=== PATIENT | male | born 1960 | race Caucasian/White ===

== ENCOUNTER → 2023-09-02 13:05 | Outpatient (BNVA) | payer OTHER, SELFPAY | PROVIDERS: PCP Family Medicine; Visit Provider Internal Medicine | DX: R07.9 Chest pain, unspecified (principal); I25.10 Atherosclerotic heart disease of native coronary artery without angina pectoris; R06.00 Dyspnea, unspecified; R94.31 Abnormal electrocardiogram [ECG] [EKG] | CPT/HCPCS: 93005; 99204 ==

== ENCOUNTER 2023-09-08 14:43 | Outpatient (CLI) | payer OTHER, SELFPAY ==
--- NOTE | 2023-09-08 15:15 | USCV_ITS ---
Demar Royal Age: 63 Gender: M : 1960 Exam Date: 09/08/2023 15:19 Ordering Phys: Brady Ledesma M.D ([email or web address]) Technologist: Teresa Silva Exam Location: [facility] Indication: CAD, SOLARES, BP: / HR: 68 Rhythm: Sinus Technical Quality: Adequate MEASUREMENTS (Male / Female) Normal Values 2D ECHO LV Diastolic Diameter PLAX 4.0 cm 4.2 - 5.9 / 3.9 - 5.3 cm LV Systolic Diameter PLAX 3.1 cm IVS Diastolic Thickness 1.2 cm 0.6 - 1.0 / 0.6 - 0.9 cm IVS Systolic Thickness 1.6 cm LVPW Diastolic Thickness 0.9 cm 0.6 - 1.0 / 0.6 - 0.9 cm LVPW Systolic Thickness 1.5 cm LVOT Diameter 2.2 cm LV Ejection Fraction 2D Teich 45.1 % LV Ejection Fraction MOD 2C 28.8 % LV Ejection Fraction 2C AL 29.5 % LA Diameter 2.7 cm LA Width 2.9 cm LA Height 3.5 cm RA Width 2.8 cm RA Height 3.9 cm Aorta at Sinotubular Diameter 3.3 cm IVC Diameter 1.2 cm M-MODE Aortic Annulus Diameter 3.1 cm LA Ao Ratio MM 0.9 MV E Point Septal Separation 1.1 cm DOPPLER AV Peak Velocity 117.0 cm/s LVOT Peak Velocity 61.0 cm/s AV Area Cont Eq vti 1.9 cm squared AV Area Cont Eq pk 2.0 cm squared MV Peak Velocity 105.0 cm/s MV Area PHT 3.3 cm squared Mitral E to A Ratio 0.5 MV E' Velocity 31.0 cm/s Mitral E to MV E' Ratio 9.1 Mitral E to LV E' Lateral Ratio 9.3 Mitral E to LV E' Septal Ratio 9.1 PV Peak Velocity 76.0 cm/s RV Acceleration Time 0.1 s RV Ejection Time 0.3 s RV AcT/ET 0.3 FINDINGS Left Ventricle Left ventricle is normal in size. LV systolic function is moderate to severely reduced with EF of 30 to 35%. Moderate to severe global hypokinesis seen. Grade 1 diastolic dysfunction Right Ventricle Mildly hypokinetic Right Atrium Normal in size Left Atrium Normal in size Mitral Valve Mild mitral regurgitation. Aortic Valve Grossly normal. No significant stenosis or regurgitation. Tricuspid Valve Insufficient TR jet to calculate RVSP Pulmonic Valve Not well visualized Pericardium Normal Aorta Normal in size IVC Not well visualized CONCLUSIONS LV systolic function is moderate to severely reduced with EF of 30-35% Grade 1 diastolic dysfunction Mildly hypokinetic right ventricle. Mild mitral regurgitation No comparison studies are available. Brady Ledesma MD (Electronically Signed) Final Date: 13 September 2023 12:20 S
== END 2023-09-08 14:44 | disposition home or self-care (01) ==
PROVIDERS: PCP Family Medicine; Visit Provider Internal Medicine
DX: R06.00 Dyspnea, unspecified (principal); R07.9 Chest pain, unspecified; I25.10 Atherosclerotic heart disease of native coronary artery without angina pectoris; I51.89 Other ill-defined heart diseases; I34.0 Nonrheumatic mitral (valve) insufficiency
CPT/HCPCS: 93306

== ENCOUNTER 2023-09-10 08:35 | Outpatient (CLI) | payer OTHER, SELFPAY ==
--- NOTE | 2023-09-10 | ECG_ITS ---
[facility] Test Date: 2023-09-10 Pat Name: Royal Benz Department: Room: Gender: Male Structural Rigger: Anatoly Damon : 1960 Requested By: Brady Ledesma Order Number: [id number] Patricia MD: Brady Ledesma M.D. Interpretive Statements NAME OF STUDY: EXERCISE SESTAMIBI STRESS TEST INDICATION: [Chest Pain; Shortness of Breath, ] EXERCISE DATA: The patient was exercised by Steven protocol. Baseline heart rate was 75 beats per minute. Baseline blood pressure was 147/92 millimeters of mercury. Target heart rate was 135 beats per minute. Maximum heart rate achieved was 151, which was 111% of the target heart rate. Maximum blood pressure was 216/81 millimeters of mercury. Total exercise time was 5 minutes and 50 seconds. Maximum METs achieved was 7. The reason for ending the test was completion of the protocol. The patient complained of shortness of breath during the stress test, which then resolved at the end of the test. ELECTROCARDIOGRAM: BASELINE: Showed sinus rhythm, normal axis, no significant ST-T changes at the baseline noted. [] EXERCISE: At the peak exercise level, [] No significant ST-T changes suggestive of ischemia noted. [] RECOVERY: During the recovery period, heart rate dropped appropriately. No significant ST-T changes in the recovery suggestive of ischemia noted. [] PVCs seen CONCLUSION: 1. Exercise capacity is fair. 2. Heart rate response was appropriate. 3. Blood pressure response was hypertensive 4. Symptoms not suggestive of ischemia. 5. Electrocardiogram portion of the stress test was not suggestive of ischemia. 6. Nuclear scan will be documented separately. Electronically Signed On 09-18-2023 12:58:59 CDT by Brady Ledesma M.D. [id number]
[2023-09-10 09:17] VITALS: BMI 26.4
--- NOTE | 2023-09-10 09:18 | NMCV_ITS ---
NM shelbi perf SPECT r/s* [id number] Royal Benz Age: 63 Gender: M : 1960 Exam Date: 09/10/2023 09:18 Ordering Phys: Brady Ledesma M.D ([email or web address]) Technologist: KAREN Yousif Exam Location: [facility] Indications: CHEST PAIN, SHORTNESS OF BREATH STRESS TEST Please see separate stress test report in [facility] for full findings IMAGE PROTOCOL Rest/Stress 1 Exercise Day Radiopharmaceutical Dose (mCi) Administration Site Administered by Rest: Tc-99m 10.7 IV KAREN Yousif Sestamibi Stress:Tc-99m 32.7 IV KAREN Riddle Sestamibi Rest: 10-Sep-2023 60 Discovery 630 Stress: 10-Sep-2023 15 Discovery 630 Radiopharmaceutical was injected at 85 % maximum heart rate. Images obtained in supine and prone position. SPECT RESULTS Technical Quality: Excellent Raw Data Analysis: Normal Image Corrections: No attenuation or motion correction applied Summed Stress Score: 21 Summed Rest Score: 20 Summed Difference Score: 2 PERFUSION FINDINGS There is a large area of mostly fixed perfusion defect noted in apical lateral, inferolateral and anterolateral quiles. Very minimal reversibility is seen in the anterolateral wall. This is consistent with large area of prior infarct with minimal sebastián-infarct ischemia in left circumflex artery territory. There is a small sized, fixed perfusion defect noted in apical wall. This is consistent with small sized prior infarct in LAD territory. Large sized area of fixed perfusion defect is also noted in the inferior wall. This is consistent with large area of prior infarct in the RCA territory with no significant ischemia FUNCTIONAL RESULTS (calculated via Gated SPECT) Stress Image LV EF (%): 38 Stress EDV (mL):125 TID: 0.85 Stress ESV (mL):77 FUNCTIONAL FINDINGS: LV systolic function is moderately reduced with EF of 38% IMPRESSIONS 1. Abnormal myocardial perfusion imaging with large area of prior infarct with minimal sebastián-infarct ischemia seen in left circumflex artery territory. 2. Large sized area of prior infarct is seen in RCA territory. 3. Small area of prior infarct is seen in LAD territory. 4. LV systolic function is moderately reduced with EF of 38% and moderate global hypokinesis. Brady Ledesma MD (Electronically Signed) Final Date: 10 September 2023 13:28 S
[2023-09-10 11:23] VITALS: BP 126/79; PULSE 87
== END 2023-09-10 08:36 | disposition home or self-care (01) ==
LOC: CDL 08:35
PROVIDERS: PCP Family Medicine; Visit Provider Internal Medicine
DX: R06.00 Dyspnea, unspecified (principal); R07.9 Chest pain, unspecified
CPT/HCPCS: 36415; 78452; 93017; A9500

== ENCOUNTER 2023-09-18 05:43 | Outpatient (CLI) | payer OTHER, SELFPAY ==
[2023-09-18] VITALS (12 sets, daily range): BP systolic 103–151; BP diastolic 67–79; PULSE 61–74; RESP 10–16; TEMP 37.1; O2SAT 97–100; BMI 26.4
--- NOTE | 2023-09-18 06:00 | XACV_ITS ---
Exam Room: 2 Ht: 170 cm Wt: 81 kg BSA: 1.98 m2 Gender: Male : 1960 Any Known Allergies: No known allergies Exam Priority: Routine Procedure(s): Procedure Description: Diagnostic procedure Procedure Description: Left Heart Catheterization Procedure Description: Right Heart Catheterization Procedure Description: Left ventriculography Procedure Description: O2 saturation Procedure Description: Coronary Angiography Diagnostic Cath Status: Elective Diagnostic Findings * No significant disease noted in the Left Main, Left Anterior Descending, Right, or Circumflex coronary arteries. * Coronary angiography shows co-dominance. Conclusions 1. No significant disease noted in the Left Main, Left Anterior Descending, Right, or Circumflex coronary arteries. 2. Non-ischemic cardiomyopathy. 3. Normal right and left sided cardiac pressures. 4. Mild left ventricular systolic dysfunction. Ejection fraction of 40%. Recommendations * Aggressive medical therapy for congestive heart failure. * Outpatient cardiology follow up in 2-4 weeks. Interventional RX Recommendation: medical therapy and/or counseling Diagnostic RX Recommendation: medical therapy and/or counseling Anticoagulation: Heparin Ventriculography Ejection Fraction: 40.0 % Pressures Phase:Rest AO : 105 / 74 ( 89 ) @ 9:16:00 AM 96 / 67 ( 81 ) @ 9:18:00 AM 103 / 56 ( 77 ) @ 9:23:00 AM 105 / 57 ( 78 ) @ 9:23:00 AM LV : 107 / / 11 @ 9:21:00 AM 108 / 3 / 15 @ 9:22:00 AM 108 / 2 / 14 @ 9:23:00 AM RV : 31 / 2 / 8 @ 9:10:00 AM PA : 33 / 14 ( 21 ) @ 9:08:00 AM RA : a wave = 11 v wave = 9 mean = 10 @ 9:10:00 AM PCW : a wave = 9 v wave = 9 mean = 8 @ 9:08:00 AM O2 Content Phase:Rest PA : O2 Content O2: 70.5 @ 9:18:00 AM Saturations Phase:Rest AO : 95 @ 9:16:00 AM PA : 71 @ 9:18:00 AM Cardiac Output Phase:Rest Thuan : 4 @ 9:00:16 AM Thuan Cardiac Index: 2 @ 9:00:16 AM Flow Phase:Rest Qp : 4 @ 9:00:16 AM Qs : 4 @ 9:00:16 AM Valves Phase:DefaultPhase AV : 4.0 @ 9:00:16 AM 4.0 @ 9:00:16 AM AV Mean Gradient: 9.0 @ 9:00:16 AM 9.0 @ 9:00:16 AM AV Flow: 243 @ 9:00:16 AM AV Area: 1.8 @ 9:00:16 AM AV Area Index: 0.95 @ 9:00:16 AM Clinical Evaluation EBL: 5mL-10mL Procedural Details Pre-Procedure Time Out. Identified patient by full name and date of as verbalized by the patient/guarantor. Does the consent match the physician's order: Yes. Accurate & Complete Informed Consent: Yes. Inpatient/Outpatient History & Physical on Chart: Yes. If H&P is completed, is and addenduem needed: No; If yes, is the addendum complete: N/A. Visualize and Verify Site with Patient/Guarantor: N/A. Relevant Radiology Images available: Yes. The risks, benefits, and alternatives of sedation and/or procedure were discussed by physician. The patient agrees to continue. Procedure started. [facility] Clinical Fraility Score: 3: Managing Well. Farm Rancher Indications: LV Dysfunction. Chest Pain Symptom Assessment: Atypical Angina. Physician arrived. Procedure Consent Obtained. Correct patient, site and procedure confirmed by cath team. PERRLA. Strong, equal hand dehydration plant operator bilaterally. Lungs clear x 5 lobes. IV Site on Arrival: 18 gauge in the left anticubital. IV Site on Arrival: 20 gauge in the right anticubital. IV Fluids: 0.9% NaCl at KVO. 0 mL infused prior to laboratory engineer. Pre Procedural Pulses: bilateral dorsalis pedis was 3+. Pre Procedural Pulses: bilateral posterior tibial was 3+. Pre Procedural Pulses: bilateral radial was 3+. right groin was prepped with chloroprep then draped in the usual sterile fashion. right radial was prepped with chloroprep then draped in the usual sterile fashion. Baseline sample Acquired. HR: 68 BPM. Physician scrubbed in. Immediate Pre-Procedure Time Out. Correct Patient: Yes; Correct Procedure: Yes; Correct Site: Yes; Correct Patient Position: Yes; Correct Supplies: Yes; Dried Flammable Prep: Yes; Blood Products Available: N/A;. Lidocaine 1% infiltrated to the right brachial. IV wire inserted through the right brachial IV catheter. IV catheter out OTW. Sharps-Blaine MON catheter inserted. Oximetry samples were obtained. Normal venous range: 60-85%. Normal arterial range: 95-100%. Pressure measurements obtained. Sharps-Blaine out. Lidocaine 1% infiltrated to the right radial. Arterial access obtained. Oxygen started at 2liters/min via nasal canula. Respiratory called to run O2 saturations. Multiple views taken of left coronary artery. Catheter redirected to the RCA. Multiple views taken of right coronary artery. Catheter removed over the exchange wire. A 5 solomon islander TIG catheter in over wire. A 5 solomon islander Angled Pig catheter in over wire. EDP Sample taken: LV 107/1,11; HR: 72 BPM; SpO2: 96%. LV gram performed in ATWOOD @ 10 mL/second for a total of 30 mL. EDP Sample taken: LV 108/3,15; HR: 75 BPM; SpO2: 97%. Pullback taken: LV 108/2,14; AO 103/56(77); Mean: 9mmHg, Peak to Peak: 4mmHg, SEP: 18sec/min; HR: 72 BPM; SpO2: 98%. A TR Band was successful obtaining hemostatsis at the Right Radial artery insertion site. A Manual Compression was successful obtaining hemostatsis at the Right Brachial Vein insertion site. Vital chart was stopped. Post Procedure: Pulses reassessed and unchanged. PERRLA. Strong, equal hand dehydration plant operator bilaterally. No VTE prophylaxis required. Medication's Wasted: Lidocaine 1% = 2 mL. Medication's Wasted: Nitro = 49.8 mg. Medication's Wasted: Heparin = 1000 units. Medication's Wasted: Other = Fentanyl 25mcg Versed 1 mg. Total IV fluids: 45 mL. Complications: None. Estimated blood loss: 5mL-10mL. Responsiveness - Normal response to verbal stimuli; alert and oriented, PERRLA. Airway - Unaffected, no intervention required; spontaneous ventilation. Circulation: W/N/L, pulses unchanged. Nausea/Vomiting: No. Procedure completed. Patient transferred by wheelchair to CPRU. Access Site Site: Right Brachial Vein Sheath Size: 6 Fr Hemostasis Method: Manual Compression Hemostasis Success: Successful Site: Right Radial artery Sheath Size: 6 Fr Hemostasis Method: TR Band Hemostasis Success: Successful Procedure Medications Start: 7:54 AM Stop: 7:54 AM Medication: Versed Amount: 1 mg Route: I.V. Start: 7:54 AM Stop: 7:54 AM Medication: Fentanyl Amount: 50 mcg Route: I.V. Start: 8:01 AM Stop: 8:01 AM Medication: Versed Amount: 1 mg Route: I.V. Start: 8:06 AM Stop: 8:06 AM Medication: Fentanyl Amount: 25 mcg Route: I.V. Start: 8:13 AM Stop: 8:13 AM Medication: Nitrogylcerin Amount: 200 mcg Route: I.A. Start: 8:16 AM Stop: 8:16 AM Medication: Heparin Amount: 5000 units Route: I.V. I, the attending physician, have reviewed and verified all procedure medications. Yes, all medications given per verbal order History/Risk Factors Hypertension: No Dyslipidemia: No Peripheral Arterial Disease (PAD): No Myocardial Infarction ([place]): Yes Obesity: No Tobacco Use: Current/Recent(w/in 1 year) Prior Interventions PCI: No CABG: No Valve Surgery: No Report Signatures Finalized by Brady Ledesma MD on 09/18/2023 10:37 AM
[2023-09-18] MEDS: diphenhydrAMINE 50 mg Capsule PO (06:10)
[2023-09-18 06:23] LABS: Basophils # 0.1 10^3/uL (0.0-0.1); Basophils % 0.8 %; Eosinophils # 0.2 10^3/uL (0.0-0.8); Eosinophils % 2.9 %; Hematocrit 45.8 % (37-53); Lymphocytes # 1.7 10^3/uL (0.8-4.8); Lymphocytes % 23.2 %; Mean Corpuscular HGB Conc 34.1 g/dL (30-55); Mean Corpuscular Hemoglobin 31.4 pg (27-33); Mean Corpuscular Volume 92.2 fl (82-101); Mean Platelet Volume 9.2 fL (7.4-10.4); Monocytes # 0.6 10^3/uL (0.2-0.9); Monocytes % 8.4 %; Neutrophils # 4.68 10^3/uL (1.8-7.7); Neutrophils % 64.2 %; Nucleated Red Blood Cells % 0 %; Platelet Count 147 10^3/cmm (157-399); Red Blood Count 4.97 10^6/uL (3.85-5.65); Red Cell Distribution Width 12.9 % (12.1-15.1); White Blood Count 7.29 10^3/uL (3.29-11.43)
[2023-09-18 06:41] LABS: Blood Urea Nitrogen 18 mg/dL (8-23); Calcium 9.6 mg/dL (8.5-10.5); Carbon Dioxide 28 mmol/L (22-29); Chloride 100 mmol/L (98-107); Glomerular Filtration Rate 68.1 mL/min (90-130); Glucose 97 mg/dL (65-115); Osmolality Calculated 284 mOsm/kg (285-295); Sodium 136 mmol/L (136-145)
[2023-09-18 06:43] LABS: Anion Gap 12.1 (5-19); Potassium 4.1 mmol/L (3.5-5.1)
--- NOTE | 2023-09-18 07:47 | W.PM.OPSUD ---
Surgery/Procedure H&P Update DATE OF PROCEDURE: September 18, 2023 DATE H&P PERFORMED: 09/02/23 H&P UPDATE INFORMATION: I have reviewed H&P completed within last 30 days, I have examined patient prior to procedure and Changes to prior documentation as noted here CHANGES TO PREVIOUS DOCUMENTATION: Patient had echocardiogram that showed severely reduced LV systolic function with EF of 30 to 35%. Stress test showed prior infarct with sebastián-infarct ischemia in left circumflex artery territory. PREOP DIAGNOSIS: Chest discomfort/LV dysfunction/abnormal stress test PRIMARY INDICATION FOR PROCEDURE: Chest discomfort/LV dysfunction/abnormal stress test PLANNED PROCEDURE: Operation Date: 09/18/23 07:00 Proposed Procedures p Right and Left Heart Cath 18243,R93.1(Bilateral) - Brady Ledesma M.D Possible percutaneous coronary intervention PATIENT REASSESSED PRIOR TO SEDATION, WITH NO CHANGE NOTED: Yes PHYSICAL EXAM: alert, oriented x 3, clear to auscultation bilaterally and regular rate & rhythm AIRWAY EVAL/ANESTHESIA PLAN: normal airway, ASA III, Local Anesthesia, Risks, benefits & alternatives of sedation and/or procedure discussed and Patient agrees to continue as planned ADDITIONAL INFORMATION: Moderate sedation
[2023-09-18 08:22] LABS: Arterial Blood Gas Hematocrit 46.8 % (42-52); Blood Gas Sample Type Not specified; Carboxyhemoglobin 2.2 %THgb (0.4-20.1); HGB O2 Sat 92.1 % (95-100); Methemoglobin 0.7 % (0.4-1.5); Total Hemoglobin 15.3 g/dL (14-18)
[2023-09-18 08:25] LABS: Arterial Blood Gas Hematocrit 45.8 % (42-52); Blood Gas Sample Type Not specified; Carboxyhemoglobin 2.2 %THgb (0.4-20.1); HGB O2 Sat 68.5 % (95-100); Methemoglobin 0.6 % (0.4-1.5); Total Hemoglobin 14.9 g/dL (14-18)
--- NOTE | 2023-09-18 08:30 | SUR.PHASEII ---
Received the patient back from the laborer electroplating via wheelchair s/p Diagnostic [facility]. Patient ambulated to the cot without difficulty. A & 0 x 3. shelter monitor placed and vital signs obtained. TR band intact to the right wrist. No bleeding or hematoma noted. Palpable radial pulse. No other assessment changes noted from pre cath assessment. No concerns voiced at this time.
--- NOTE | 2023-09-18 09:30 | SUR.PHASEII ---
Letting the air out of the TR band per protocol. No other assessment changes noted at this time.
--- NOTE | 2023-09-18 10:30 | SUR.PHASEII ---
TR band off per protocol. Site cleansed with warm water and patted dry. A large bandaid was applied to the site and loosely secured with coban. Patient tolerated well. The patient notified his ride, Fernando Moeller, that he would be ready for sheepskin pickler around 1130. No other assessment changes at this time.
== END 2023-09-18 05:44 | disposition home or self-care (01) ==
PROVIDERS: PCP Family Medicine; Visit Provider Internal Medicine
DX: R93.1 Abnormal findings on diagnostic imaging of heart and coronary circulation (principal); I42.8 Other cardiomyopathies; I10 Essential (primary) hypertension; I25.2 Old myocardial infarction; I25.10 Atherosclerotic heart disease of native coronary artery without angina pectoris
CPT/HCPCS: 36415; 36600; 80048; 82810; 85025; 93460; 96361; 96365; 99152; 99153; C1751; C1769; C1887; C1894; J1644; J2250; J3010; J3490; J7030; Q0163; Q9967

== ENCOUNTER → 2023-09-26 08:33 | Outpatient (BNVA) | payer OTHER, SELFPAY | PROVIDERS: PCP Family Medicine; Visit Provider Nurse Practitioner Family | DX: I25.10 Atherosclerotic heart disease of native coronary artery without angina pectoris (principal) | CPT/HCPCS: 36415; 80048; 99214 ==

== ENCOUNTER → 2023-11-06 11:55 | Outpatient (BNVA) | payer OTHER, SELFPAY | PROVIDERS: PCP Family Medicine; Visit Provider Internal Medicine | DX: I25.10 Atherosclerotic heart disease of native coronary artery without angina pectoris (principal); R06.00 Dyspnea, unspecified | CPT/HCPCS: 99214 ==

== ENCOUNTER → 2024-05-06 13:29 | Outpatient (BNVA) | payer OTHER, SELFPAY | PROVIDERS: PCP Family Medicine; Visit Provider Internal Medicine | DX: I25.10 Atherosclerotic heart disease of native coronary artery without angina pectoris (principal); R06.00 Dyspnea, unspecified; Z72.0 Tobacco use | CPT/HCPCS: 99214 ==

== ENCOUNTER → 2025-02-03 14:34 | Outpatient (BNVA) | payer OTHER, SELFPAY | PROVIDERS: PCP Family Medicine; Visit Provider Internal Medicine | DX: I25.10 Atherosclerotic heart disease of native coronary artery without angina pectoris (principal); R06.00 Dyspnea, unspecified; F17.210 Nicotine dependence, cigarettes, uncomplicated | CPT/HCPCS: 99213 ==